=== PATIENT | male | born 1975 | race African-American/Black ===

== ENCOUNTER 2024-03-24 18:02 | Emergency (ER) | payer OTHER, SELFPAY ==
[2024-03-24] MEDS ORDERED: Ibuprofen 600 MG TAB ONE (18:19)
[2024-03-24] MEDS ORDERED: Penicillin V Potassium 250 MG TAB ONE (18:19)
[2024-03-24] MEDS ORDERED: traMADol HCl 50 MG TAB ONE (18:19)
== END 2024-03-24 18:30 | disposition home or self-care (01) ==
LOC: MADERS 18:02
DX: K02.9 Dental caries, unspecified (principal); F17.210 Nicotine dependence, cigarettes, uncomplicated
CPT/HCPCS: 99282